=== PATIENT | female | born 1950 | race Caucasian/White ===

== ENCOUNTER 2016-12-25 12:45 | Outpatient (CLI) | payer OTHER | END 2016-12-25 12:46 | disposition home or self-care (01) | DX: Z12.31 Encounter for screening mammogram for malignant neoplasm of breast (principal) ==

== ENCOUNTER 2018-01-21 07:39 | Outpatient (CLI) | payer MEDICARE, BC ==
[2018-01-21 08:11] LABS: CREATININE 0.9 mg/dL (0.4-1.0)
[2018-01-21] MEDS ORDERED: GADOBUTROL 10 MMOL/10 ML SYRINGE ONE (09:01)
[2018-01-21] MEDS ORDERED: GADOBUTROL 10 MMOL/10 ML SYRINGE IVP ONE (09:49)
--- NOTE | 2018-01-21 11:31 | MRI Report ---
EXAM: LEFT FOREFOOT MRI WITHOUT AND WITH CONTRAST EXAM DATE: 01/21/2018 10:09 AM. CLINICAL HISTORY: LEFT FOOT SOFT TISSUE MASS. COMPARISON: Radiographs 01/13/2018. TECHNIQUE: Multiplanar, multisequence T1-weighted and fluid-sensitive sequences of the forefoot befor e and after administration of intravenous contrast. IV contrast: 9 cc gadavist. Other: None. FINDINGS: Bones and articular surfaces: Moderate cartilage thinning, irregularity and fissuring at the second t arsometatarsal articulation with subchondral edema and subchondral cyst formation. Moderate cartilage thinning and fissuring with subchondral edema and marginal osteophytes at the first MTP joint. Soft tissues: Deep to the skin marker placed over the dorsal soft tissue mass and there is a predomin antly fat signal intensity lobulated irregular soft tissue mass. The largest portion of the mass is d orsal and subcutaneous in location. This portion measures approximately 1 cm proximal to distal and a pproximately 2.2 x 1.5 cm transverse. This lesion communicates with additional areas of predominantly fat signal intensity dissecting between the third and fourth metatarsals. Ovoid component plantar to the fourth metatarsal measures 1.4 x 1.3 cm transverse and 3.4 cm proximal to distal. Ovoid componen t plantar to the third metatarsal measures 1.0 x 0.9 cm transverse and 2.2 cm proximal to distal. The re is a thin neck between the dorsal subcutaneous and deeper soft tissue components. There are some e nhancing vessels adjacent to the neck. There are multiple foci thin enhancing septation within the le favio. Possibility of some nodular enhancing component near the neck of the lesion. Visualized flexor and extensor tendons appear intact. There is some mass effect on the interosseous muscles with minima l increased T2 signal. Visualized musculotendinous structures otherwise appear intact. No lymphadenop athy within the field of view. IMPRESSION: 1. Lobulated irregular predominantly fat signal intensity mass involving dorsal subcutaneous and deep soft tissues at the lateral forefoot. Given the presence of multifocal thin septations with some enh ancement and dissection into the deep soft tissues, this may represent a benign lipoma versus well di fferentiated liposarcoma. [facility] MUSCULOSKELETAL RADIOLOGY SECTION Referring Provider Line: [phone] SITE ID: [id number]
== END 2018-01-21 07:40 | disposition home or self-care (01) ==
LOC: LAB 07:39
PROVIDERS: ATTEND Podiatrist Foot & Ankle Surgery
DX: R22.42 Localized swelling, mass and lump, left lower limb (principal)
CPT/HCPCS: 36415; 73720; 82565; 84520; A9585

== ENCOUNTER 2018-06-27 09:08 | Outpatient (CLI) | payer MEDICARE, BC ==
--- NOTE | 2018-06-28 14:39 | Mammography Report ---
Reason: SCREENING MAMMO Procedure Date: 06/27/2018 Accession Number: [id number] / [id number] Procedure: EMANUEL - Screening Mammo Dig Bilat CPT Code: FULL RESULT: EXAM: Screening Mammo Dig Bilat DATE: 06/27/2018 10:30 AM CLINICAL HISTORY: 68-year-old female with history of late childbearing. TECHNIQUE: Bilateral CC and MLO views were obtained. COMPARISON: 12/25/2016, 11/21/2015, 08/14/2014, 08/12/2013. FINDINGS: The breasts demonstrate scattered fibroglandular densities bilaterally. No suspicious masses, clustered microcalcifications, or regions of architectural distortion are identified. IMPRESSION: Negative examination RECOMMENDATION: Routine annual screening unless otherwise clinically indicated. BIRADS CATEGORY 1: Negative STANDARD QUALIFYING STATEMENTS: 1. This examination was not reviewed with the aid of Computer-Aided Detection (CAD). 2. A negative or benign imaging report should not delay biopsy if clinically suspicious findings are present. Consider surgical consultation if warrented. More than 5% of cancers are not identified by imaging. 3. Dense breasts may obscure an underlying neoplasm.
== END 2018-06-27 09:09 | disposition home or self-care (01) ==
LOC: DI 09:08
PROVIDERS: ATTEND Obstetrics & Gynecology
DX: Z12.31 Encounter for screening mammogram for malignant neoplasm of breast (principal)
CPT/HCPCS: 77067

== ENCOUNTER 2021-08-15 08:18 | Outpatient (CLI) | payer MEDICARE, BC ==
--- NOTE | 2021-08-18 10:26 | Mammography Report ---
BILATERAL DIGITAL SCREENING MAMMOGRAM 3D/2D: 08/15/2021 CLINICAL: Routine screening. Comparison is made to exams dated: 06/27/2018 mammogram, 12/25/2016 mammogram, 11/21/2015 mammogram, mammogram, 08/12/2013 mammogram, and 07/11/2012 mammogram - [facility]. The re are scattered fibroglandular elements in both breasts. No significant masses, calcifications, or other findings are seen in either breast. There has been no significant interval change. IMPRESSION: NEGATIVE There is no mammographic evidence of malignancy. A 1 year screening mammogram is recommended. This exam was interpreted at Station ID: [id number]. NOTE: For mammograms, a report in lay terms will be sent to the patient. Approximately 15% of breast malignancies will not be visualized mammographically. In the management of a palpable breast mass, a negative mammogram must not discourage biopsy of a clinically suspicious lesion. Electronically Signed By: Kaitlynn nye/reagan:08/15/2021 12:04:20 ACR BI-RADS Category 1: Negative 3341F PARENCHYMAL PATTERN: (A) - The breast(s) demonstrate(s) scattered fibroglandular densities. BI-RADS CATEGORY: (1) - 1 RECOMMENDATION: (ANNUAL) - Recommend routine annual screening mammography. [id number] 1 year screening LATERALITY: (B)
== END 2021-08-15 08:19 | disposition home or self-care (01) ==
LOC: DI 08:18
DX: Z12.31 Encounter for screening mammogram for malignant neoplasm of breast (principal)

== ENCOUNTER 2022-08-25 13:14 | Outpatient (CLI) | payer MEDICARE, BC ==
--- NOTE | 2022-08-26 10:06 | Mammography Report ---
BILATERAL DIGITAL SCREENING MAMMOGRAM 3D/2D: 08/25/2022 CLINICAL: Routine screening. Comparison is made to exams dated: 08/15/2021 mammogram, 06/27/2018 mammogram, 12/25/2016 mammogram, mammogram, and 08/14/2014 mammogram - [facility]. There are scattered areas of fibroglandular density in both breasts (category b / 25%-50% glandular t issue). No significant masses, calcifications, or other findings are seen in either breast. There has been no significant interval change. IMPRESSION: NEGATIVE There is no mammographic evidence of malignancy. A 1 year screening mammogram is recommended. Based on the Tyrer Cuzick model (a risk assessment model) the patients lifetime risk is 5.7% and her 10 year risk is 3.6%. According to the ACR, ACS, and NCCN guidelines, an annual breast MRI exam duyen g with mammogram is recommended if the patients lifetime risk is 20% or greater. This exam was interpreted at Station ID: [id number]. NOTE: For mammograms, a report in lay terms will be sent to the patient. Approximately 15% of breast malignancies will not be visualized mammographically. In the management of a palpable breast mass, a negative mammogram must not discourage biopsy of a clinically suspicious lesion. Electronically Signed By: Arsenio sears/reagan:08/25/2022 17:53:17 ACR BI-RADS Category 1: Negative 3341F PARENCHYMAL PATTERN: (A) - The breast(s) demonstrate(s) scattered fibroglandular densities. BI-RADS CATEGORY: (1) - 1 RECOMMENDATION: (ANNUAL) - Recommend routine annual screening mammography. [id number] 1 year screening LATERALITY: (B)
== END 2022-08-25 13:15 | disposition home or self-care (01) ==
LOC: DI 13:14
DX: Z12.31 Encounter for screening mammogram for malignant neoplasm of breast (principal)

== ENCOUNTER 2023-01-21 08:20 | Outpatient (CLI) | payer MEDICARE, BC ==
--- NOTE | 2023-01-21 17:07 | DEXA Report ---
PROCEDURE: Dexa Spine and/or Hip INDICATIONS: POST MENOPAUSAL TECHNIQUE: Dual energy x-ray absorptiometry (DXA) was performed on a [email or web address] System. Regions measur ed are the AP Spine, femoral neck, and if needed forearm. COMPARISON: None. FINDINGS: Lumbar Spine: Bone Mineral Density 1.175 g/cm/cm,T score 0, normal Left Femoral Neck: Bone Mineral Density 0.799 g/cm/cm, T score -1.7, osteopenia Left Hip: Bone Mineral Density 0.806 g/cm/cm,T score -1.6, osteopenia (T score greater or equal to -1.0: NORMAL) (T score from -1.1 to -2.4: OSTEOPENIA) (T score less than or equal to -2.5 to: OSTEOPOROSIS) Impression: Moderate osteopenia within the hip and femoral neck. Patients with diagnosis of osteoporosis or osteopenia should have regular bone mineral density assess ment. For those eligible for Medicare, routine testing is allowed once every 2 years. Testing frequ ency can be increased for patients who have rapidly progressing disease or for those who are receivin g medical therapy to restore bone mass. Reviewed by: Amanda Ardon MD on 01/21/2023 5:05 PM PDT Approved by: Amanda Ardon MD on 01/21/2023 5:05 PM PDT Station ID: [id number]
== END 2023-01-21 08:21 | disposition home or self-care (01) ==
LOC: DI 08:20
PROVIDERS: ATTEND Nurse Practitioner
DX: Z13.820 Encounter for screening for osteoporosis (principal); M85.89 Other specified disorders of bone density and structure, multiple sites; Z78.0 Asymptomatic menopausal state

== ENCOUNTER 2023-09-02 11:15 | Outpatient (CLI) | payer MEDICARE, BC ==
--- NOTE | 2023-09-02 16:56 | Mammography Report ---
BILATERAL DIGITAL SCREENING MAMMOGRAM 3D/2D: 09/02/2023 CLINICAL: Routine screening. Comparison is made to exams dated: 08/25/2022 mammogram, 08/15/2021 mammogram, 06/27/2018 mammogram, 12/25/2016 mammogram, 11/21/2015 mammogram, and 08/14/2014 mammogram - [facility]. Both breasts are heterogeneously dense, which may obscure small masses (category c / 51-75% glandular tissue). No significant masses, calcifications, or other findings are seen in either breast. There has been no significant interval change. IMPRESSION: NEGATIVE There is no mammographic evidence of malignancy. A 1 year screening mammogram is recommended. Based on the Tyrer Cuzick model (a risk assessment model) the patients lifetime risk is 8.2% and her 10 year risk is 5.6%. According to the ACR, ACS, and NCCN guidelines, an annual breast MRI exam duyen g with mammogram is recommended if the patients lifetime risk is 20% or greater. This exam was interpreted at Station ID: [id number]. NOTE: For mammograms, a report in lay terms will be sent to the patient. Approximately 15% of breast malignancies will not be visualized mammographically. In the management of a palpable breast mass, a negative mammogram must not discourage biopsy of a clinically suspicious lesion. Electronically Signed By: Julio Cesar [email or web address]/reagan:09/02/2023 14:52:42 letter sent: No_Letter ACR BI-RADS Category 1: Negative 3341F PARENCHYMAL PATTERN: (D) - The breast(s) demonstrate(s) heterogeneously dense fibroglandular gama verma. BI-RADS CATEGORY: (1) - 1 Mammogram [id number] 1 year screening LATERALITY: (B)
== END 2023-09-02 11:16 | disposition home or self-care (01) ==
LOC: DI 11:15
PROVIDERS: ATTEND Nurse Practitioner
DX: Z12.31 Encounter for screening mammogram for malignant neoplasm of breast (principal); R92.333 Mammographic heterogeneous density, bilateral breasts

== ENCOUNTER 2024-02-26 08:04 | Outpatient (CLI) | payer MEDICARE, BC ==
--- NOTE | 2024-02-28 09:20 | XRAY Report ---
PROCEDURE: Hand 3+V BL INDICATIONS: PRIMARY OSTEOARTHRITIS TECHNIQUE: 3 views of the hand(s) acquired. COMPARISON: None. FINDINGS: Bones: No fractures or dislocations. No suspicious bony lesions. There is moderate to severe IP d egenerative narrowing bilaterally. It is relatively symmetric. Changes are most significant at the DI P joints bilaterally. Areas of subchondral sclerosis of scattered periarticular osteophytes are prese nt. Mild to moderate first CMC degenerative narrowing is present. There are scattered areas of periar ticular lucency most prominent at the right second and third DIP joints on the left as well as second DIP joint on the right. Soft tissues: No suspicious soft tissue calcifications or masses. IMPRESSION: Diffuse appearance of arthritic change is relatively symmetric and most severe at the DIP joints as a krystina. Periarticular lucencies are present. These are nonspecific. These could represent areas of subc hondral cysts or an appropriate clinical laboratory circumstances arthritic erosions. Reviewed by: Amanda Ardon MD on 02/28/2024 9:19 AM PDT Approved by: Amanda Ardon MD on 02/28/2024 9:19 AM PDT Station ID: [id number]
== END 2024-02-26 08:05 | disposition home or self-care (01) ==
LOC: DI 08:04
PROVIDERS: ATTEND Internal Medicine
DX: M19.041 Primary osteoarthritis, right hand (principal); M19.042 Primary osteoarthritis, left hand